=== PATIENT | male | born 2000 | race Caucasian/White ===

== ENCOUNTER 2019-05-25 14:47 | Emergency (ER) | payer OTHER ==
[2019-05-25 14:54] VITALS: BP 135/72
--- NOTE | 2019-05-25 16:35 | ED ---
Lower Extremity - HPI Summary HPI Summary: Patient is a 18-year-old male who presents with right ankle pain and swelling after getting his foot caught between two wrestling mats yesterday. Was evaluated by the business trainer who wanted him to have x-rays done. Has been icing ankle and taking Ibuprofen, which has helped. States pain has significantly improved since yesterday. Denies numbness, tingling. Denies fever. Denies knee pain. - History of Current Complaint Chief Complaint: EDExtremityLower Stated Complaint: RT ANKLE INJURY PER PT Time Seen by Provider: 05/25/19 16:20 Hx Obtained From: Patient Mechanism Of Injury: Twisted Onset of Pain: Immediate Severity Initially: Severe Severity Currently: Moderate Pain Intensity: 8 Timing: Constant Character Of Pain: Aching Associated Signs And Symptoms: Positive: Swelling Able to Bear Weight: Yes - Allergies/Home Medications Allergies/Adverse Reactions: Allergies Allergy/AdvReac Type Severity Reaction Status Date / Time No Known Allergies Allergy Verified 05/25/19 14:54 PMH/Surg Hx/FS Hx/Imm Hx Infectious Disease History: No Infectious Disease History: Denies: Traveled Outside the [place] in Last 30 Days Review of Systems Constitutional: Negative Negative: Fever Cardiovascular: Negative Negative: Palpitations, Chest Pain Respiratory: Negative Negative: Shortness Of Breath, Cough Gastrointestinal: Negative Negative: Abdominal Pain, Vomiting, Nausea Genitourinary: Negative Positive: no symptoms reported Skin: Negative Negative: Bruising Neurological: Negative Negative: Paresthesia, Numbness Psychological: Normal All Other Systems Reviewed And Are Negative: Yes Physical Exam Triage Information Reviewed: Yes Vital Signs On Initial Exam: Initial Vitals Temp Pulse Resp BP Pulse Ox 99.2 F 75 18 135/72 98 05/25/19 14:52 05/25/19 14:52 05/25/19 14:52 05/25/19 14:52 05/25/19 14:52 Vital Signs Reviewed: Yes Appearance: Positive: Well-Appearing, No Pain Distress, Well-Nourished Skin: Positive: Warm, Skin Color Reflects Adequate Perfusion, Dry Head/Face: Positive: Normal Head/Face Inspection ENT: Positive: Hearing grossly normal Neck: Positive: Supple Respiratory/Lung Sounds: Positive: Clear to Auscultation, Breath Sounds Present. Negative: Rales, Rhonchi, Wheezes Cardiovascular: Positive: Normal, RRR, S1, S2. Negative: Murmur, Rub Musculoskeletal: Positive: Normal, Strength/ROM Intact, Edema Right - Right lateral ankle swelling/pain, Other Neurological: Positive: Normal, Sensory/Motor Intact Procedures - Sedation Patient Received Moderate/Deep Sedation with Procedure: No Diagnostics - Vital Signs Vital Signs Temp Pulse Resp BP Pulse Ox 05/25/19 14:52 99.2 F 75 18 135/72 98 - Laboratory Lab Statement: Any lab studies that have been ordered have been reviewed, and results considered in the medical decision making process. Lower Extremity Course/Dx - Course Course Of Treatment: 18-year-old male presents with left ankle pain and swelling after twisting injury yesterday. Mild swelling and tenderness noted. No deformities/crepitus. XR shows no acute fracture. PAin has improved significantly with Ibuprofen and ice. Patient is weight-bearing and boot which has been helping. DC'd home with ankle strain and will remain in boot if continues to endors pain and symptoms. Denies other concerns. No family or surg history obtained. - Diagnoses Differential Diagnosis/HQI/PQRI: Positive: Fracture (Closed), Sprain, Tendonitis Provider Diagnoses: Ankle strain Discharge ED - Sign-Out/Discharge Documenting (check all that apply): Patient Departure - Discharge Plan Condition: Stable Disposition: HOME Patient Education Materials: Ankle Sprain (ED) Referrals: No Primary Care Phys,NOPCP [Primary Care Provider] - Additional Instructions: Ibuprofen 600mg three times daily Ice to the area Elevate Ambulate as tolerated - Billing Disposition and Condition Condition: STABLE Disposition: Home
== END 2019-05-25 16:46 | disposition home or self-care (01) ==
LOC: ED 14:47
DX: M25.471 Effusion, right ankle (principal); M25.571 Pain in right ankle and joints of right foot; R60.0 Localized edema
CPT/HCPCS: 99281